=== PATIENT | male | born 1955 | race Caucasian/White ===

== ENCOUNTER → 2023-12-29 | Outpatient (CLI) | payer OTHER | END | disposition home or self-care (01) | LOC: LAB SHORT 18:09 → LAB 18:09 | DX: L08.9 Local infection of the skin and subcutaneous tissue, unspecified (principal) | CPT/HCPCS: 87070; 87077; 87147; 87186; 87205 ==

== ENCOUNTER 2024-09-27 11:28 | Emergency (ER) | payer OTHER ==
[~2024-09-27] VITALS: Ht 182.9 cm; Wt 108.9 kg
[2024-09-27] MEDS ORDERED: Ketorolac Tromethamine 15mg Vial IM ONE (12:35)
[2024-09-27] MEDS ORDERED: Methocarbamol 500 MG Tab PO ONE (12:35)
[2024-09-27] MEDS ORDERED: HYDR1TAB94 PO (13:52)
[2024-09-27] MEDS ORDERED: Diclofenac Pota50 MG PO (13:52)
[2024-09-27] MEDS ORDERED: OXAYDO5 M1 PO (14:01)
== END 2024-09-27 14:16 | disposition home or self-care (01) ==
LOC: ER 11:28
DX: M25.512 Pain in left shoulder (principal); Z59.89 Other problems related to housing and economic circumstances
CPT/HCPCS: 96372; 99283-25; J1885

== ENCOUNTER 2024-11-15 07:21 | Emergency (ER) | payer OTHER ==
[~2024-11-15] VITALS: Ht 182.9 cm; Wt 108.9 kg
[~2024-11-15 07:21] MED LIST: Diclofenac Pota50 MG PO; HYDR1TAB94 PO; OXAYDO5 M1 PO
[2024-11-15 09:12] LABS: BASOPHILS ABSOLUTE AUTO 0.04 K/mm3 (0.00-0.23); BASOPHILS PERCENT AUTO 0 % (0-2); EOSINOPHILS ABSOLUTE AUTO 0.01 K/mm3 (0.00-0.68); EOSINOPHILS PERCENT AUTO 0 % (0-6); Hematocrit 50.5 % (37.0-53.0); Hemoglobin 16.4 g/dL (13.5-17.5); IMMATURE GRAN ABSOLUTE AUTO 0.05 K/mm3 (0.00-0.10); IMMATURE GRAN PERCENT AUTO 0 % (0-1); LYMPHOCYTES ABSOLUTE AUTO 1.66 K/mm3 (0.84-5.20); LYMPHOCYTES PERCENT AUTO 12 % (21-46); MONOCYTES ABSOLUTE AUTO 1.23 K/mm3 (0.16-1.47); MONOCYTES PERCENT AUTO 9 % (4-13); Mean Corpuscular HGB 26.8 pg (26.0-34.0); Mean Corpuscular HGB Conc 32.5 g/dL (31.5-36.5); Mean Corpuscular Volume 83 fL (80-100); Mean Platelet Volume 9.9 fL (9.1-12.4); NEUTROPHILS ABSOLUTE AUTO 10.59 K/mm3 (1.96-9.15); NEUTROPHILS PERCENT AUTO 78 % (41-73); Platelet Count 325 K/mm3 (150-400); RDW Coefficient Variation 14.7 % (11.7-14.2); RDW Standard Deviation 43.6 fL (35.1-46.3); Red Blood Cell Count 6.11 M/mm3 (4.30-5.90); White Blood Cell Count 13.58 K/mm3 (4.00-11.30)
[2024-11-15 09:36] LABS: Albumin, Blood 3.8 g/dL (3.4-5.0); Albumin/Globulin Ratio 0.9 (0.8-1.8); Creatinine, Blood 0.8 mg/dL (0.60-1.20); Globulin, Blood 4.2 g/dL (2.2-4.0)
[2024-11-15] MEDS ORDERED: MELO7.5 PO (10:43)
[2024-11-15] MEDS ORDERED: Morphine Sulfate 4 MG/1 ML Injection IV ONE (10:55)
[2024-11-15] MEDS ORDERED: Metoclopramide HCl 5MG / ML 2ML Vial IV ONE (10:55)
[2024-11-15] MEDS ORDERED: Lactated Ringer's 1,000 ML IV ONE (10:55)
[2024-11-15] MEDS ORDERED: METO5A PO (12:41)
== END 2024-11-15 13:07 | disposition home or self-care (01) ==
LOC: ER 07:21
PROVIDERS: Student in an Organized Health Care Education/Training Program
DX: K85.90 Acute pancreatitis without necrosis or infection, unspecified (principal); Z79.899 Other long term (current) drug therapy
CPT/HCPCS: 74177; 80053; 83690; 84484; 85025; 96361; 96374-59; 96375; 99284-25; J2270; J2765; J7120; Q9967

== ENCOUNTER 2025-01-23 06:28 | Day surgery (SDC) | payer OTHER ==
[~2025-01-23] VITALS: Ht 182.9 cm; Wt 108.1 kg
[~2025-01-23 06:28] MED LIST changes: +Lactated Ringer's 1,000 ML IV ONE; +MELO7.5 PO; +METO5A PO
[2025-01-23] MEDS ORDERED: CeFAZolin Sodium 2,000 MG VIAL ONE (06:30)
[2025-01-23] MEDS ORDERED: NAPR220 PO (07:03)
[2025-01-23] MEDS ORDERED: Lactated Ringer's 1,000 ML IV ONE (07:10)
[2025-01-23] MEDS ORDERED: EPINEPhrine HCl 1 MG/ML 1ML Amp ONE ×2 (07:11→08:35)
[2025-01-23] MEDS ORDERED: Midazolam HCl 1MG / ML 2ML Vial ONE ×3 (07:15→12:40)
[2025-01-23] MEDS ORDERED: Etomidate 2MG / ML 10ML Vial ONE (07:17)
[2025-01-23] MEDS ORDERED: FentaNYL Citrate 50 MCG/ML 2 ML Injection ONE ×3 (07:18→12:41)
[2025-01-23] MEDS ORDERED: propofoL 20 ML IV ONE (07:36)
--- NOTE | 2025-01-23 07:41 | NUR ---
01/23/25 0741 TODD RINCON 0728 TIME OUT DONE PRIOR TO BLOCK WITH MO FROM ANESTHESIA
[2025-01-23] MEDS ORDERED: Ondansetron HCl 2 MG / ML 2ML Vial ONE (07:49)
[2025-01-23] MEDS ORDERED: Dexamethasone Sod Phos 10 MG/ML 1ML VIAL ONE ×2 (07:49→12:24)
[2025-01-23] MEDS ORDERED: Ketorolac Tromethamine 30mg Vial ONE (08:29)
[2025-01-23] MEDS ORDERED: Sugammadex Sodium 200 MG/2ML SDV (100 MG/ML) ONE (08:30)
[2025-01-23] MEDS ORDERED: Bupivacaine 0.5% HCl 5 MG/ML 30MLVIAL ONE ×2 (08:35→12:24)
[2025-01-23] MEDS ORDERED: HYDROmorphone HCl/Pf 1MG SYR ONE (09:14)
[2025-01-23] MEDS ORDERED: Ketamine HCl 100 MG / ML 5ML Vial ONE (09:20)
--- NOTE | 2025-01-23 09:28 | NUR ---
01/23/25927 NADRE MORELAND ANESTHESIA AT BEDSIDE, VERSED AND KETAMINE GIVEN BY ANESTHESIA. PT SHAKING AND INCONSOLABLE. 924, ANESTHESIA PLACING OPA. PT ON 15L NRB. SAT 93% 925 SAT 99% 15L NRB. BP 178/106. 927 ANESTHESIA REMAINS AT BEDSIDE. SATS 98% ON 15L NRB.
[2025-01-23] MEDS ORDERED: SuccINYLCHOLINE Chloride 100 MG/5 ML 5MLSYR ONE (09:42)
[2025-01-23] MEDS ORDERED: Rocuronium Bromide 10 MG/ML 5ML Injection IV ONE (09:42)
--- NOTE | 2025-01-23 10:23 | NUR ---
01/23/25 1023 ANDRE MORELAND DROWSY: FOLLOWS COMMANDS, NODS YES AND NO, BUT QUICKLY DRIFTS TO SLEEP. APPEARS COMFORTABLE AFTER FENTANYL. 4L NC. SATS 94% PRIOR TO FENTANYL PT CALLING OUT "PAIN" REPEATEDLY, MAINTAING SATS ON RA. ON WAY.
[2025-01-23] MEDS ORDERED: OxyCODONE HCL 5 MG TAB ONE (10:48)
[2025-01-23] MEDS ORDERED: Lidocaine 2%-Epineph 1:200000 20 ML SDV ONE (12:24)
[2025-01-24] MEDS ORDERED: OXYC5 PO (11:05)
[2025-01-24] MEDS ORDERED: TIZANIDINE HCL213 PO (11:06)
[2025-01-24] MEDS ORDERED: AMLODIPINE BESY10 MG PO (11:06)
[2025-01-24] MEDS ORDERED: IBUP800 PO (16:04)
== END 2025-01-23 13:40 | disposition home or self-care (01) ==
LOC: ORSCSDS 06:28
PROVIDERS: Orthopaedic Surgery
PROC: 0LM24ZZ Reattachment of Left Shoulder Tendon, Percutaneous Endoscopic Approach (ICD-10-PCS; principal; 2025-01-23 07:30)
PROC: 0RNK4ZZ Release Left Shoulder Joint, Percutaneous Endoscopic Approach (ICD-10-PCS; principal; 2025-01-23 07:30)
DX: M75.122 Complete rotator cuff tear or rupture of left shoulder, not specified as traumatic (principal); M75.22 Bicipital tendinitis, left shoulder; G47.33 Obstructive sleep apnea (adult) (pediatric); Z79.899 Other long term (current) drug therapy
CPT/HCPCS: A9270; C1713; J0171; J0330; J0690; J1100; J1171; J1885; J2250; J2405; J2704; J3010; J7120

== ENCOUNTER 2025-01-24 09:57 | Emergency (ER) | payer OTHER ==
[~2025-01-24] VITALS: Ht 180.3 cm; Wt 113.4 kg
[~2025-01-24 09:57] MED LIST changes: -Lactated Ringer's 1,000 ML IV ONE; +NAPR220 PO
[2025-01-24] MEDS ORDERED: HYDROmorphone HCl/Pf 1MG SYR IV ONE ×2 (10:25→12:05)
[2025-01-24] MEDS ORDERED: Ondansetron HCl 2 MG / ML 2ML Vial IV ONE (10:25)
[2025-01-24 10:55] LABS: BASOPHILS ABSOLUTE AUTO 0.02 K/mm3 (0.00-0.23); BASOPHILS PERCENT AUTO 0 % (0-2); EOSINOPHILS ABSOLUTE AUTO 0.01 K/mm3 (0.00-0.68); EOSINOPHILS PERCENT AUTO 0 % (0-6); Hematocrit 48.4 % (37.0-53.0); Hemoglobin 15.8 g/dL (13.5-17.5); IMMATURE GRAN ABSOLUTE AUTO 0.08 K/mm3 (0.00-0.10); IMMATURE GRAN PERCENT AUTO 0 % (0-1); LYMPHOCYTES ABSOLUTE AUTO 1.89 K/mm3 (0.84-5.20); LYMPHOCYTES PERCENT AUTO 10 % (21-46); MONOCYTES ABSOLUTE AUTO 1.34 K/mm3 (0.16-1.47); MONOCYTES PERCENT AUTO 7 % (4-13); Mean Corpuscular HGB 26.5 pg (26.0-34.0); Mean Corpuscular HGB Conc 32.6 g/dL (31.5-36.5); Mean Corpuscular Volume 81 fL (80-100); Mean Platelet Volume 9.7 fL (9.1-12.4); NEUTROPHILS ABSOLUTE AUTO 14.89 K/mm3 (1.96-9.15); NEUTROPHILS PERCENT AUTO 82 % (41-73); Platelet Count 364 K/mm3 (150-400); RDW Coefficient Variation 14.7 % (11.7-14.2); RDW Standard Deviation 43.2 fL (35.1-46.3); Red Blood Cell Count 5.97 M/mm3 (4.30-5.90); White Blood Cell Count 18.23 K/mm3 (4.00-11.30)
[2025-01-24 10:58] LABS: Source, Urine Voided
[2025-01-24 11:02] LABS: Appearance, Urine Clear (Clear); Bilirubin, Urine Neg (Neg); Blood, Urine 1+ (Neg); Color, Urine Yellow (P-Yellow); Glucose Qualitative, Urine Neg (Neg); Ketones, Urine Neg (Neg); Leukocyte Esterase, Urine Neg (Neg); Nitrite, Urine Neg (Neg); Protein, Urine Neg (Neg); Urobilinogen, Urine NORM (Normal)
[2025-01-24] MEDS ORDERED: OXYC5 PO (11:05)
[2025-01-24] MEDS ORDERED: TIZANIDINE HCL213 PO (11:06)
[2025-01-24] MEDS ORDERED: AMLODIPINE BESY10 MG PO (11:06)
[2025-01-24 11:18] LABS: Red Blood Cells, Urine 0-2 /hpf (0-2)
[2025-01-24 11:19] LABS: Hyaline Casts 0-2 /lpf (0-2)
[2025-01-24 11:22] LABS: Squamous Epithelial Cells Rare /hpf (Few)
[2025-01-24 11:27] LABS: Amorphous Light (0-Heavy); Bacteria Few /hpf; Mucus Heavy (0-Heavy)
[2025-01-24 11:35] LABS: Albumin, Blood 4.2 g/dL (3.4-5.0); Albumin/Globulin Ratio 1.3 (0.8-1.8); Bilirubin, Total 0.5 mg/dL (0.1-1.0); Bun/Creatinine Ratio 22.4 (12.0-20.0); Calcium, Blood 9.5 mg/dL (8.5-10.1); Creatinine, Blood 0.76 mg/dL (0.60-1.20); Globulin, Blood 3.3 g/dL (2.2-4.0); Potassium, Blood 3.8 mmol/L (3.5-5.5); Total Protein, Blood 7.5 g/dL (6.4-8.2)
[2025-01-24] MEDS ORDERED: Ketorolac Tromethamine 30mg Vial IV ONE (12:05)
[2025-01-24] MEDS ORDERED: Midazolam HCl 1MG / ML 2ML Vial ONE (14:19)
[2025-01-24] MEDS ORDERED: FentaNYL Citrate 50 MCG/ML 2 ML Injection IV ONE (14:40)
[2025-01-24] MEDS ORDERED: IBUP800 PO (16:04)
[2025-01-25] MEDS ORDERED: MORP15ER PO (17:07)
[2025-01-25] MEDS ORDERED: OXAYDO5 M1 PO (17:30)
== END 2025-01-24 16:24 | disposition home or self-care (01) ==
LOC: ER 09:57
PROVIDERS: Emergency Medicine
DX: G89.18 Other acute postprocedural pain (principal); M25.512 Pain in left shoulder; R10.11 Right upper quadrant pain; Z79.899 Other long term (current) drug therapy
CPT/HCPCS: 20610; 74177; 80053; 81001; 83690; 85025; 93005; 93010; 96374-59; 96375-59; 96376-59; 99284-25; J1171; J1885; J2250; J2405; J3010; Q9967

== ENCOUNTER 2025-01-25 10:00 | Emergency (ER) | payer OTHER ==
[~2025-01-25] VITALS: Ht 182.9 cm; Wt 104.3 kg
[~2025-01-25 10:00] MED LIST changes: +AMLODIPINE BESY10 MG PO; +IBUP800 PO; +OXYC5 PO; +TIZANIDINE HCL213 PO
[2025-01-25] MEDS ORDERED: buprenorphine HCL 2 MG TAB.SUBL SL ONE (10:45)
[2025-01-25 11:08] LABS: BASOPHILS ABSOLUTE AUTO 0.03 K/mm3 (0.00-0.23); BASOPHILS PERCENT AUTO 0 % (0-2); EOSINOPHILS ABSOLUTE AUTO 0.02 K/mm3 (0.00-0.68); EOSINOPHILS PERCENT AUTO 0 % (0-6); Hematocrit 49.9 % (37.0-53.0); Hemoglobin 16.2 g/dL (13.5-17.5); IMMATURE GRAN ABSOLUTE AUTO 0.11 K/mm3 (0.00-0.10); IMMATURE GRAN PERCENT AUTO 1 % (0-1); LYMPHOCYTES ABSOLUTE AUTO 2.24 K/mm3 (0.84-5.20); LYMPHOCYTES PERCENT AUTO 11 % (21-46); MONOCYTES ABSOLUTE AUTO 1.46 K/mm3 (0.16-1.47); MONOCYTES PERCENT AUTO 8 % (4-13); Mean Corpuscular HGB 26.6 pg (26.0-34.0); Mean Corpuscular HGB Conc 32.5 g/dL (31.5-36.5); Mean Corpuscular Volume 82 fL (80-100); Mean Platelet Volume 9.6 fL (9.1-12.4); NEUTROPHILS ABSOLUTE AUTO 15.73 K/mm3 (1.96-9.15); NEUTROPHILS PERCENT AUTO 80 % (41-73); Platelet Count 366 K/mm3 (150-400); RDW Coefficient Variation 14.8 % (11.7-14.2); RDW Standard Deviation 43.9 fL (35.1-46.3); White Blood Cell Count 19.59 K/mm3 (4.00-11.30)
[2025-01-25 11:53] LABS: Albumin, Blood 4.4 g/dL (3.4-5.0); Albumin/Globulin Ratio 1.3 (0.8-1.8); Bilirubin, Total 0.7 mg/dL (0.1-1.0); Bun/Creatinine Ratio 28.7 (12.0-20.0); Calcium, Blood 9.8 mg/dL (8.5-10.1); Creatinine, Blood 0.84 mg/dL (0.60-1.20); Globulin, Blood 3.4 g/dL (2.2-4.0); Potassium, Blood 3.8 mmol/L (3.5-5.5); Total Protein, Blood 7.8 g/dL (6.4-8.2)
[2025-01-25] MEDS ORDERED: Ondansetron HCl 2 MG / ML 2ML Vial IV ONE (15:55)
[2025-01-25] MEDS ORDERED: LORazepam 2 MG/ML 1ML Injection IV ONE (16:15)
[2025-01-25] MEDS ORDERED: MORP15ER PO (17:07)
[2025-01-25] MEDS ORDERED: OXAYDO5 M1 PO (17:30)
== END 2025-01-25 18:18 | disposition home or self-care (01) ==
LOC: ER 10:00
PROVIDERS: Student in an Organized Health Care Education/Training Program
DX: G89.18 Other acute postprocedural pain (principal); M25.512 Pain in left shoulder; R10.11 Right upper quadrant pain; M54.9 Dorsalgia, unspecified; G89.29 Other chronic pain
CPT/HCPCS: 76705; 80053; 83690; 85025; 96374; 96375; 99284-25; J2060; J2405